=== PATIENT | female | born 1960 | race Caucasian/White ===

== ENCOUNTER 2022-02-06 13:08 | Outpatient (REF) | payer BC, SELFPAY ==
[2022-02-06 13:22] LABS: Appearance Urine Clear; Color Urine Yellow; Glucose Urine UA >=1000 mg/dL (Negative); Leukocyte Esterase Urine Moderate (2+) (Negative); Nitrite Urine Negative (Negative); PH 6.5 (5.0-9.0); UMIC TRIGGER UACC YES; Urine Blood Trace (Negative); Urine Ketones Negative (Negative); Urine Protein Negative (Neg-Trace)
[2022-02-06 15:29] LABS: Bacteria Urine 2+ (None Seen); Hyaline Casts Urine 0-2 /LPF (0-2); RBC Urine 0-2 /HPF (0-2); Squamous Epithelial Cell Urine 0-2 /HPF (0-2); UACC Culture Trigger YES; WBC Urine 21-50 /HPF (0-5)
== END 2022-02-06 13:09 | disposition home or self-care (01) ==
LOC: HO.LNP 13:08
PROVIDERS: Visit Provider Physician Assistant Medical
DX: R30.0 Dysuria (principal)
CPT/HCPCS: 81001; 87086; 87088; 87186

== ENCOUNTER 2022-03-11 08:57 | Outpatient (REF) | payer BC, SELFPAY ==
[2022-03-11 11:33] LABS: MANUAL DIFF FLAG NO
[2022-03-11 11:48] LABS: Basophils Percent Auto 0.6 % (0-2); Eosinophils Absolute Auto 0.2 X10*3/uL (0.0-0.4); Eosinophils Percent Auto 3.2 % (0-4); Hematocrit 40.1 % (37.0-47.0); Hemoglobin 12.9 g/dl (12.0-16.0); Imm Gran Abs Auto 0.02 X10*3/uL (0.00-0.03); Imm Gran Pct Auto 0.4 % (0.0-0.4); Lymphocytes Absolute Auto 1.6 X10*3/uL (1.2-4.9); Lymphocytes Percent Auto 30.2 % (20-40); Mean Corpuscular HGB Conc 32.2 g/dl (31.0-35.0); Mean Corpuscular Hemoglobin 29.3 pg (27.0-33.0); Mean Corpuscular Volume 90.9 fL (80.0-98.0); Mean Platelet Volume 10.2 fL (9.4-12.3); Monocytes Absolute Auto 0.6 X10*3/uL (0.1-1.2); Monocytes Percent Auto 11.4 % (2-11); Neutrophils Absolute Auto 2.9 x10*3/uL (2.0-8.3); Neutrophils Percent Auto 54.2 % (45-73); Platelet Count 335 X10*3/uL (160-400); Red Blood Count 4.41 X10*6/uL (4.20-5.50); Red Cell Distribution Width 12.9 % (11.0-16.0); White Blood Count 5.4 X10*3/uL (4.8-10.8)
[2022-03-11 12:14] LABS: Alanine Aminotransferase 15 U/L (0-31); Albumin Level 4.5 g/dL (3.5-5.0); Alkaline Phosphatase 91 U/L (39-117); Anion Gap 17 (12-20); Aspartate Amino Transferase 10 U/L (5-31); Bilirubin Total 0.3 mg/dL (0.0-1.0); Blood Urea Nitrogen 12 mg/dL (9-16); Calcium 9.4 mg/dL (8.4-10.2); Carbon Dioxide 26 mmol/L (22-29); Chloride 103 mmol/L (96-108); Cholesterol 243 mg/dL; Estimated Glomerular Filt Rate > 60; Glucose Fasting 203 mg/dL (60-99); HDL Cholesterol 81 mg/dL; LDL Cholesterol Calculated 137 mg/dl; Potassium 4.2 mmol/L (3.3-5.1); Sodium 142 mmol/L (135-145); Total Protein 7.2 g/dL (6.5-8.0); Triglycerides 127 mg/dL
[2022-03-11 12:20] LABS: Vitamin D 25-OH Total 29.1 ng/mL (>30)
[2022-03-11 13:19] LABS: Appearance Urine Turbid; Color Urine Yellow; Glucose Urine UA 500 mg/dL (Negative); Leukocyte Esterase Urine Trace (Negative); Nitrite Urine Negative (Negative); PH 5.5 (5.0-9.0); Specific Gravity - Urine 1.025 (1.005-1.025); UMIC TRIGGER UA YES; Urine Blood Trace (Negative); Urine Ketones Negative (Negative); Urine Protein Negative (Neg-Trace)
[2022-03-11 13:43] LABS: Bacteria Urine None Seen (None Seen); Calcium Oxalate Crystals Urine Present; Hyaline Casts Urine 0-2 /LPF (0-2); WBC Urine 0-5 /HPF (0-5)
== END 2022-03-11 08:58 | disposition home or self-care (01) ==
LOC: HO.HMGCLDS 08:57
PROVIDERS: PCP Internal Medicine; Visit Provider Internal Medicine
DX: Z00.00 Encounter for general adult medical examination without abnormal findings (principal)
CPT/HCPCS: 36415; 80053; 80061; 81001; 82306; 84443; 85025

== ENCOUNTER 2022-03-17 07:13 | Outpatient (REF) | payer BC, SELFPAY ==
[2022-03-17 11:46] LABS: Estimated Average Glucose 171 mg/dL; Hemoglobin A1c % 7.6 %
[2022-03-17 11:52] LABS: Glucose Fasting 185 mg/dL (60-99); Iron 109 mcg/dL (30-160); Percent Iron Saturation 30 % (15-50); Total Iron Binding Capacity 366 mcg/dL (228-428); Unsaturated Iron Binding 257 ug/dL
== END 2022-03-17 07:14 | disposition home or self-care (01) ==
LOC: HO.HMGCLDS 07:13
PROVIDERS: PCP Internal Medicine; Visit Provider Internal Medicine
DX: Z00.00 Encounter for general adult medical examination without abnormal findings (principal); R73.9 Hyperglycemia, unspecified
CPT/HCPCS: 36415; 82947; 83036; 83540

== ENCOUNTER → 2022-03-31 12:56 | Outpatient (BNVA) | payer BC, SELFPAY | PROVIDERS: PCP Internal Medicine; Visit Provider Dietitian, Registered | DX: E11.9 Type 2 diabetes mellitus without complications (principal) | CPT/HCPCS: 97802 ==

== ENCOUNTER 2022-07-16 06:50 | Outpatient (REF) | payer BC, SELFPAY ==
[2022-07-16 11:51] LABS: Estimated Average Glucose 157 mg/dL; Hemoglobin A1c % 7.1 %
[2022-07-16 12:01] LABS: Alanine Aminotransferase 12 U/L (0-31); Albumin Level 4.4 g/dL (3.5-5.0); Alkaline Phosphatase 74 U/L (39-117); Anion Gap 12 (12-20); Aspartate Amino Transferase 12 U/L (5-31); Bilirubin Total 0.6 mg/dL (0.0-1.0); Blood Urea Nitrogen 16 mg/dL (9-16); Calcium 9.5 mg/dL (8.4-10.2); Carbon Dioxide 29 mmol/L (22-29); Chloride 106 mmol/L (96-108); Cholesterol 212 mg/dL; Estimated Glomerular Filt Rate > 60; Glucose Fasting 138 mg/dL (60-99); HDL Cholesterol 64 mg/dL; LDL Cholesterol Calculated 131 mg/dl; Sodium 143 mmol/L (135-145); Total Protein 6.7 g/dL (6.5-8.0); Triglycerides 85 mg/dL
[2022-07-16 12:20] LABS: Creatinine Urine 127.11 mg/dL; Microalbum/Creatinine Ratio Ur 14.1 ug/mg cr
== END 2022-07-16 06:51 | disposition home or self-care (01) ==
LOC: HO.HMGCLDS 06:50
PROVIDERS: PCP Internal Medicine; Visit Provider Internal Medicine
DX: E11.9 Type 2 diabetes mellitus without complications (principal)
CPT/HCPCS: 36415; 80053; 80061; 82043; 83036

== ENCOUNTER 2022-11-30 07:01 | Outpatient (REF) | payer BC, SELFPAY ==
[2022-11-30 11:40] LABS: Estimated Average Glucose 134 mg/dL; Hemoglobin A1c % 6.3 %
[2022-11-30 11:54] LABS: Alanine Aminotransferase 20 U/L (0-31); Albumin Level 4.3 g/dL (3.5-5.0); Alkaline Phosphatase 69 U/L (39-117); Anion Gap 14 (12-20); Aspartate Amino Transferase 16 U/L (5-31); Bilirubin Total 0.5 mg/dL (0.0-1.0); Blood Urea Nitrogen 13 mg/dL (9-16); Calcium 10.1 mg/dL (8.4-10.2); Carbon Dioxide 26 mmol/L (22-29); Chloride 105 mmol/L (96-108); Cholesterol 227 mg/dL; Estimated Glomerular Filt Rate > 60; Glucose Fasting 154 mg/dL (60-99); HDL Cholesterol 80 mg/dL; LDL Cholesterol Calculated 128 mg/dl; Sodium 141 mmol/L (135-145); Total Protein 6.8 g/dL (6.5-8.0); Triglycerides 96 mg/dL
== END 2022-11-30 07:02 | disposition home or self-care (01) ==
LOC: HO.HMGCLDS 07:01
PROVIDERS: PCP Internal Medicine; Visit Provider Internal Medicine
DX: E11.9 Type 2 diabetes mellitus without complications (principal)
CPT/HCPCS: 36415; 80053; 80061; 83036

== ENCOUNTER 2022-12-10 08:39 | Outpatient (AMB) | payer BC, SELFPAY ==
[2022-12-10 08:40] VITALS: BP 118/62; PULSE 81; O2SAT 100; BMI 20.4
--- NOTE | 2022-12-10 08:40 | MHC.PC.OV ---
Vital Signs 12/10/22 08:40 Height 5 ft 9 in Weight 138 lb BMI 20.4 BP 118/62 Blood Pressure Location Lt brachial Position Sitting Pulse 81 Pulse Source Pulse Oximeter Pulse Oximetry (%) 100 Oxygen Delivery Method Room Air Intake Visit Reasons: 3 Month follow up Intake Note: Pt is here today for 3 months follow up visit. Allergies acetaminophen [From Percocet] Allergy (Mild, Verified 12/10/22 08:46) itchiness bupropion [From Wellbutrin] Allergy (Mild, Verified 12/10/22 08:46) HBP oxycodone [From Percocet] Allergy (Mild, Verified 12/10/22 08:46) itchiness Medication List - Last Reconciled 12/10/22 by Cristina Quintero MD berberine-herbal comb no.18 caps PO blood sugar diagnostic (FreeStyle Test strips) 1 QD FreeStyle Rickie 3 Sensor (blood-glucose sensor) As directed to monitor blood sugar 4 times per day NS FreeStyle Lite Meter (blood-glucose meter) As directed NS lancets (FreeStyle Lancets) 1 qd multivitamin 1 tab PO DAILY omega 2-ogm-gbk-fish oil 60-90-500 mg (Fish Oil) 1 cap PO DAILY turmeric mg PO Tobacco use date assessed: 12/10/22 Dental Screening Dental Screen Date: 12/10/22 Did you have a dental visit in the last 12 months?: Yes Did you have a dental problem in the last 6 months where you did not have access to dental care?: No Was dental information given to patient?: Patient has dentist HPI 3 Month follow up HPI Details Pt is for f/u diet controlled DM and hyperlipid. 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 Patient Tobacco Use Status: Former Tobacco user Quit Date: 42 years ago e-Cigarette/Vaping Use: Never Used Second Hand Smoke Exposure: No service: No Current occupational status: employed Current occupation: [employer] Current occupational exposures/hazards: No Cognitive needs: No Hearing needs: No Vision needs: No Questionnaire Thrive Questionnaire Date Thrive assessed: 07/21/22 I am a: Patient What is your living situation today?: I have a steady place to live Within the past 12 months, did the food you bought not last and you didn't have the money to get more?: Never true Within the past 12 months, did you worry whether your food would run out before you got money to buy more?: Never true AUDIT C Alcohol Use Questionnaire (AUDIT-C) 1. How often do you have a drink containing alcohol?: 2-4 times a month 2. How many drinks containing alcohol do you have on a typical day when you are drinking?: 1 or 2 3. How often do you have six or more drinks on one occasion?: Never Total Score: 2 DOREEN-7 AMB Questionnaire DOREEN-7 Date DOREEN - 7 assessed: 07/21/22 Feeling nervous, anxious, or on edge: 1 = Several days Not being able to stop or control worryin = Several days Worrying too much about different things: 1 = Several days Trouble relaxin = Several days Being so restless that it is hard to sit still: 1 = Several days Becoming easily annoyed or irritable: 1 = Several days Feeling afraid as if something awful might happen: 0 = Not at all Total DOREEN-7 score (0-4 normal; 5-9 mild; 10-14 moderate; 15-21 severe): 6 Source: Developed by Drs. Asim Sharma, Roselyn Vance, Richard Pace and colleagues, with an educational casa from [employer]. Review of Systems Const All systems reviewed & are unremarkable except as noted in HPI and below Reports no additional complaints Eyes Reports no additional complaints ENT Reports no additional complaints Card Reports no additional complaints Resp Reports no additional complaints GI Reports no additional complaints Physical exam (Primary Care) Vital Signs: Last Vital Signs Pulse 81 12/10/22 08:40 BP 118/62 12/10/22 08:40 Pulse Ox 100 12/10/22 08:40 Oxygen Delivery Method Room Air 12/10/22 08:40 BMI result Body Mass Index 20.4 Tobacco/Smoking Status: Tobacco use Status Tobacco use date assessed 12/10/22 12/10/22 08:48 Patient Tobacco Use Status Former Tobacco user 12/10/22 08:41 e-Cigarette/Vaping Use Never Used 12/10/22 08:41 Thrive Assessment: Date of Thrive Assessment Date Thrive assessed 07/21/22 12/10/22 08:41 Const General: no acute distress HENMT Head: Yes normal to inspection General nose exam: Normal external nose present Mouth: Normal oral and palatal mucosa present Throat: Yes posterior oropharynx normal Eyes General: appearance normal, both eyes and all related structures Neck Neck: Yes supple Resp Effort & Inspection: normal respiratory effort Auscultation: clear to auscultation bilaterally Cardio Rhythm: regular rhythm Heart sounds: S1 normal heart sound present and S2 normal heart sound present GI Inspection: Yes normal to inspection Palpation (GI): Soft to palpation Auscultation: normal bowel sounds Extrem General: Yes no clubbing, cyanosis or edema Assessment and Plan Assessment & Plan (1) DM2 (diabetes mellitus, type 2): Comment: A1c 7.6 03/13, patient declined medications A1C 6.3, 12/12 Code(s): E11.9 - Type 2 diabetes mellitus without complications Plan: A1C is down to 6.3, cont ADA diet, exercise, f/u 6 mths for PE (2) Postmenopausal: Code(s): Z78.0 - Asymptomatic menopausal state Plan: check DEXA and cont vit D 3 (3) FHx: coronary artery disease: Comment: mother [place] in 60, father CAD, s/p AVR Code(s): Z82.49 - Family history of ischemic heart disease and other diseases of the circulatory system Plan: check apolipoprotein B and lipid profile Orders: Orders Apolipoprotein B 6 Months E11.9 - Type 2 diabetes mellitus without complications, E78.5 - Hyperlipidemia, unspecified, Z78.0 - Asymptomatic menopausal state, Z82.49 - Family history of ischemic heart disease and other diseases of the circulatory system Comprehensive [place]. Panel Fast 6 Months E11.9 - Type 2 diabetes mellitus without complications, E78.5 - Hyperlipidemia, unspecified, Z78.0 - Asymptomatic menopausal state, Z82.49 - Family history of ischemic heart disease and other diseases of the circulatory system Hemoglobin A1c 6 Months E11.9 - Type 2 diabetes mellitus without complications, E78.5 - Hyperlipidemia, unspecified, Z78.0 - Asymptomatic menopausal state, Z82.49 - Family history of ischemic heart disease and other diseases of the circulatory system Lipid Panel 6 Months E11.9 - Type 2 diabetes mellitus without complications, E78.5 - Hyperlipidemia, unspecified, Z78.0 - Asymptomatic menopausal state, Z82.49 - Family history of ischemic heart disease and other diseases of the circulatory system Microalbumin, Random (w Creat) 6 Months E11.9 - Type 2 diabetes mellitus without complications, E78.5 - Hyperlipidemia, unspecified, Z78.0 - Asymptomatic menopausal state, Z82.49 - Family history of ischemic heart disease and other diseases of the circulatory system Complete Blood Count Auto Diff 6 Months E11.9 - Type 2 diabetes mellitus without complications, E78.5 - Hyperlipidemia, unspecified, Z78.0 - Asymptomatic menopausal state, Z82.49 - Family history of ischemic heart disease and other diseases of the circulatory system XR DEXA axial skeleton 6 Months E11.9 - Type 2 diabetes mellitus without complications, E78.5 - Hyperlipidemia, unspecified, Z78.0 - Asymptomatic menopausal state, Z82.49 - Family history of ischemic heart disease and other diseases of the circulatory system Coding Level of Care Code Est Pt Level 4 (19896) Diagnoses DM2 (diabetes mellitus, type 2) E11.9 Postmenopausal Z78.0 FHx: coronary artery disease Z82.49
== END 2022-12-10 09:36 | disposition home or self-care (01) ==
PROVIDERS: Visit Provider Internal Medicine
DX: E11.9 Type 2 diabetes mellitus without complications (principal); Z78.0 Asymptomatic menopausal state; Z82.49 Family history of ischemic heart disease and other diseases of the circulatory system
CPT/HCPCS: 99214

== ENCOUNTER 2023-02-01 08:03 | Outpatient (REF) | payer BC, SELFPAY ==
--- NOTE | ~2023-02-01 | MM_ITS ---
EXAMINATION: BONE DENSITOMETRY CLINICAL INDICATION: Menopausal. COMPARISON: This is the patient's baseline examination. TECHNIQUE: Using a [employer] DXA System (software version: 13.1) manufactured by [employer], dual-energy x-ray absorptiometry was performed of the lumbar spine and left hip. The images are of good technical quality. Summary results are attached. FINDINGS: LEFT FEMUR, NECK: BMD 0.831 g/cm2, Z-score -0.1, T-score -1.5, osteopenia. LEFT FEMUR, TOTAL: BMD 0.776 g/cm2, Z-score -0.7, T-score -1.8, osteopenia. AP SPINE L1-L4: BMD 1.150 g/cm2, Z-score 1.2, T-score -0.3, normal. IDENTIFIED RISK FACTORS: Early menopause, secondary osteoporosis, hysterectomy, bilateral oophorectomy. HISTORY OF FRACTURE: None listed. MEDICATIONS: Multivitamin. MM/XR DEXA axial skeleton IMPRESSION: 1. DIAGNOSIS: Osteopenia based on the lowest T-score value of -1.8 in the total femur applying World Health Organization criteria. 2. 10-YEAR FRACTURE RISK PREDICTION, FRAX: Major osteoporotic fracture (clinical spine, forearm, hip or shoulder) 7.5%. Hip fracture 0.8%. 3. Treatment Recommendations: NOF guidelines recommend consideration for treatment in postmenopausal women and men age 50 and older presenting with the following: -A hip or vertebral (clinical or morphometric) fracture. -T-score less than or equal to -2.5 at the femoral neck or spine after appropriate evaluation to exclude secondary causes. -Low bone mass at the hip or spine and a 10-year fracture probability by FRAX of greater than or equal to 3% for hip fracture or greater than or equal to 20% for major osteoporotic fracture based on the [place] adapted WHO algorithm. 4. Other Recommendations: All treatment decisions require clinical judgment and consideration of individual patient factors, including patient preferences, comorbidities, previous drug use, risk factors not captured in the FRAX model (e.g. frailty, falls, vitamin D deficiency, increased bone turnover, interval significant decline in bone density) and possible under or overestimation of fracture risk by FRAX. Additional medical evaluation for secondary cause of low bone mineral density may be appropriate. FUTURE SCAN RECOMMENDATION: People with diagnosed cases of osteoporosis or at high risk for fracture should have regular bone mineral density tests. For patients eligible for Medicare, routine testing is allowed once every 2 years. The testing frequency can be increased to one year for patients who have rapidly progressing disease, those who are receiving or discontinuing medical therapy to restore bone mass, or have additional risk factors.
== END 2023-02-01 08:04 | disposition home or self-care (01) ==
LOC: HO.MAMMO 08:03
PROVIDERS: PCP Internal Medicine; Visit Provider Internal Medicine
DX: Z13.820 Encounter for screening for osteoporosis (principal); Z78.0 Asymptomatic menopausal state
CPT/HCPCS: 77080

== ENCOUNTER → 2023-02-01 08:15 | Outpatient (BNV) | payer BC, SELFPAY | PROVIDERS: PCP Internal Medicine; Visit Provider Radiology Diagnostic Radiology | DX: M85.89 Other specified disorders of bone density and structure, multiple sites (principal) | CPT/HCPCS: 77080 ==

== ENCOUNTER 2023-06-09 06:28 | Outpatient (REF) | payer BC, SELFPAY ==
[2023-06-09 12:03] LABS: MANUAL DIFF FLAG NO
[2023-06-09 12:12] LABS: Basophils Percent Auto 0.7 % (0-2); Eosinophils Absolute Auto 0.2 X10*3/uL (0.0-0.4); Eosinophils Percent Auto 3.2 % (0-4); Hematocrit 39.9 % (37.0-47.0); Hemoglobin 12.8 g/dl (12.0-16.0); Imm Gran Abs Auto 0.02 X10*3/uL (0.00-0.03); Imm Gran Pct Auto 0.4 % (0.0-0.4); Lymphocytes Absolute Auto 1.7 X10*3/uL (1.2-4.9); Lymphocytes Percent Auto 31.9 % (20-40); Mean Corpuscular HGB Conc 32.1 g/dl (31.0-35.0); Mean Corpuscular Hemoglobin 29.6 pg (27.0-33.0); Mean Corpuscular Volume 92.1 fL (80.0-98.0); Mean Platelet Volume 10.3 fL (9.4-12.3); Monocytes Absolute Auto 0.6 X10*3/uL (0.1-1.2); Monocytes Percent Auto 11.2 % (2-11); Neutrophils Absolute Auto 2.8 x10*3/uL (2.0-8.3); Neutrophils Percent Auto 52.6 % (45-73); Platelet Count 378 X10*3/uL (160-400); Red Blood Count 4.33 X10*6/uL (4.20-5.50); Red Cell Distribution Width 13.2 % (11.0-16.0); White Blood Count 5.4 X10*3/uL (4.8-10.8)
[2023-06-09 12:18] LABS: Estimated Average Glucose 134 mg/dL; Hemoglobin A1c % 6.3 % (<6.0)
[2023-06-09 12:58] LABS: Alanine Aminotransferase 13 U/L (0-31); Albumin Level 4.2 g/dL (3.5-5.0); Alkaline Phosphatase 65 U/L (39-117); Anion Gap 12 (12-20); Aspartate Amino Transferase 12 U/L (5-31); Bilirubin Total 0.4 mg/dL (0.0-1.0); Blood Urea Nitrogen 16 mg/dL (9-16); Calcium 9.5 mg/dL (8.4-10.2); Carbon Dioxide 27 mmol/L (22-29); Chloride 109 mmol/L (96-108); Cholesterol 211 mg/dL (<200); Estimated Glomerular Filt Rate > 60; Glucose Fasting 131 mg/dL (60-99); HDL Cholesterol 71 mg/dL (>40); LDL Cholesterol Calculated 123 mg/dL (<100); Sodium 144 mmol/L (135-145); Total Protein 6.8 g/dL (6.5-8.0); Triglycerides 87 mg/dL (<150)
[2023-06-09 13:00] LABS: Microalbum/Creatinine Ratio Ur 25.8 ug/mg cr (<30)
[2023-06-14 00:14] LABS: Apolipoprotein B 94 mg/dL (<90)
== END 2023-06-09 06:29 | disposition home or self-care (01) ==
LOC: HO.HMGCLDS 06:28
PROVIDERS: PCP Internal Medicine; Visit Provider Internal Medicine
DX: E78.5 Hyperlipidemia, unspecified (principal); E11.9 Type 2 diabetes mellitus without complications; Z78.0 Asymptomatic menopausal state; Z82.49 Family history of ischemic heart disease and other diseases of the circulatory system
CPT/HCPCS: 36415; 80053; 80061; 82043; 82172; 82570; 83036; 85025

== ENCOUNTER 2023-06-14 07:29 | Outpatient (AMB) | payer BC, SELFPAY ==
[2023-06-14 07:31] VITALS: BP 110/62; PULSE 82; O2SAT 98; BMI 20.5
--- NOTE | 2023-06-14 07:31 | MHC.PC.OV ---
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: No Accompanied by: Self / Same As Patient Allergies acetaminophen [From Percocet] Allergy (Mild, Verified 06/14/23 07:32) itchiness bupropion [From Wellbutrin] Allergy (Mild, Verified 06/14/23 07:32) HBP oxycodone [From Percocet] Allergy (Mild, Verified 06/14/23 07:32) itchiness Medication List - Last Reconciled 06/14/23 by Cristina Quintero MD berberine-herbal comb no.18 caps PO blood sugar diagnostic (FreeStyle Test strips) 1 QD FreeStyle Rickie 3 Sensor (blood-glucose sensor) As directed to monitor blood sugar 4 times per day NS FreeStyle Lite Meter (blood-glucose meter) As directed NS lancets (FreeStyle Lancets) 1 qd multivitamin 1 tab PO DAILY turmeric mg PO Tobacco use date assessed: 06/14/23 Dental Screening Dental Screen Date: 06/14/23 Did you have a dental visit in the last 12 months?: Yes Did you have a dental problem in the last 6 months where you did not have access to dental care?: No Was dental information given to patient?: Patient has dentist HPI PE HPI Details Pt presents for PE. Patient has been under lot of stress related to work and is planning to semi retired in the spring. 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 1. Little interest or pleasure in doing things: not at all 2. Feeling down, depressed, or hopeless: several days 3. Trouble falling or staying asleep, or sleeping too much: more than half the days 4. Feeling tired or having little energy: more than half the days 5. Poor appetite or overeating: not at all 6. Feeling bad about yourself - or that you are a failure or have let yourself or your family down: not at all 7. Trouble concentrating on things, such as reading the newspaper or watching television: more than half the days 8. Moving or speaking so slowly that other people could have noticed. Or the opposite - being so fidgety or restless that you have been moving around a lot more than usual: not at all 9. Thoughts that you would be better off or of hurting yourself in some way: not at all Total score: 7 Depression Screening Interpretation: Negative Depression Screening Done: Yes 13637 - PHQ-9 Billing: Yes Source: Developed by Drs. Asim Sharma, Roselyn Vance, Richard Pace and colleagues, with an educational casa from [employer]. Thrive Questionnaire Date Thrive assessed: 06/14/23 I am a: Patient What is your living situation today?: I have a steady place to live Within the past 12 months, did the food you bought not last and you didn't have the money to get more?: Never true Within the past 12 months, did you worry whether your food would run out before you got money to buy more?: Never true Do you have trouble paying for medicines?: No Do you have trouble getting transportation to medical appointments?: No Do you have trouble paying your heating and electricity bill?: No Do you have trouble taking care of your child, family member or friend?: No Do you have trouble with day-to-day activities such as bathing, preparing meals, shopping, managing finances, etc.?: No Are you currently unemployed and looking for a job?: No Are you interested in more education?: No Please select the resources that you would like help with: None Currently or been in a relationship where the following occur: no concerns reported THRIVE Score: 0 AUDIT C Alcohol Use Questionnaire (AUDIT-C) 1. How often do you have a drink containing alcohol?: 2-4 times a month 2. How many drinks containing alcohol do you have on a typical day when you are drinking?: 1 or 2 3. How often do you have six or more drinks on one occasion?: Never Total Score: 2 Score Reviewed/Action Taken: Yes DOREEN-7 AMB Questionnaire ODREEN-7 Date DOREEN - 7 assessed: 06/14/23 Feeling nervous, anxious, or on edge: 2 = More than half the days Not being able to stop or control worryin = More than half the days Worrying too much about different things: 2 = More than half the days Trouble relaxin = More than half the days Being so restless that it is hard to sit still: 1 = Several days Becoming easily annoyed or irritable: 2 = More than half the days Feeling afraid as if something awful might happen: 1 = Several days Total DOREEN-7 score (0-4 normal; 5-9 mild; 10-14 moderate; 15-21 severe): 12 Source: Developed by Drs. Asim Sharma, Roselyn Vance, Richard Pace and colleagues, with an educational casa from [employer]. DOREEN-7 Assessment Billing DOREEN-7 Assessment Tool: DOREEN-7 Assessment 58001 Review of Systems Const All systems reviewed & are unremarkable except as noted in HPI and below Reports no additional complaints Eyes Reports no additional complaints ENT Reports no additional complaints Card Reports no additional complaints Resp Reports no additional complaints GI Reports no additional complaints Reports no additional complaints Physical exam (Primary Care) Vital Signs: Last Vital Signs Pulse 82 06/14/23 07:31 BP 110/62 06/14/23 07:31 Pulse Ox 98 06/14/23 07:31 Oxygen Delivery Method Room Air 06/14/23 07:31 BMI result Body Mass Index 20.5 Tobacco/Smoking Status: Tobacco use Status Tobacco use date assessed 06/14/23 06/14/23 07:38 Patient Tobacco Use Status Former Tobacco user 06/14/23 07:38 e-Cigarette/Vaping Use Never Used 06/14/23 07:38 PHQ-9: PHQ-9 Score PHQ-9: Total score 7 06/14/23 07:45 Depression Screening Interpretation: Negative Thrive Assessment: Date of Thrive Assessment Date Thrive assessed 06/14/23 06/14/23 07:38 Currently or been in a relationship where the following occur: no concerns reported Const General: no acute distress HENMT Head: Yes normal to inspection Ears: hearing grossly normal bilaterally General nose exam: Normal external nose present Face and sinus: Yes normal facial exam Mouth: Normal oral and palatal mucosa present Throat: Yes posterior oropharynx normal Eyes General: appearance normal, both eyes and all related structures Neck Neck: Yes no lymphadenopathy and Yes supple Resp Effort & Inspection: normal respiratory effort Auscultation: clear to auscultation bilaterally Cardio Rhythm: regular rhythm Heart sounds: S1 normal heart sound present and S2 normal heart sound present GI Inspection: Yes normal to inspection Palpation (GI): Soft to palpation Percussion: Yes normal to percussion Auscultation: normal bowel sounds Assessment and Plan Assessment & Plan (1) Annual physical exam: Code(s): Z00.00 - Encounter for general adult medical examination without abnormal findings Plan: Well-balanced diet regular exercise stress management discussed with the patient. She is up-to-date with mammogram colonoscopy patient will return in 6 months with a fasting labs. (2) DM2 (diabetes mellitus, type 2): Comment: A1c 7.6 03/13, patient declined medications A1C 6.3, 12/12, 6.3 06/15 Code(s): E11.9 - Type 2 diabetes mellitus without complications Plan: Continue ADA diet regular exercise and stress management follow-up in 6 months with a fasting labs before (3) Hyperlipidemia: Code(s): E78.5 - Hyperlipidemia, unspecified Plan: Low-cholesterol diet increase physical activity discussed with the patient. Patient declined taking statin Orders: Orders Hemoglobin A1c 6 Months E11.9 - Type 2 diabetes mellitus without complications, E78.5 - Hyperlipidemia, unspecified, Z00.00 - Encounter for general adult medical examination without abnormal findings Lipid Panel 6 Months E11.9 - Type 2 diabetes mellitus without complications, E78.5 - Hyperlipidemia, unspecified, Z00.00 - Encounter for general adult medical examination without abnormal findings Microsatellite Instability 6 Months E11.9 - Type 2 diabetes mellitus without complications, E78.5 - Hyperlipidemia, unspecified, Z00.00 - Encounter for general adult medical examination without abnormal findings Comprehensive [place]. Panel Fast 6 Months E11.9 - Type 2 diabetes mellitus without complications, E78.5 - Hyperlipidemia, unspecified, Z00.00 - Encounter for general adult medical examination without abnormal findings Complete Blood Count Auto Diff 6 Months E11.9 - Type 2 diabetes mellitus without complications, E78.5 - Hyperlipidemia, unspecified, Z00.00 - Encounter for general adult medical examination without abnormal findings Vitamin D 25-OH Total 6 Months E11.9 - Type 2 diabetes mellitus without complications, E78.5 - Hyperlipidemia, unspecified, Z00.00 - Encounter for general adult medical examination without abnormal findings Referrals Speech and Hearing Referral Z00.00 - Encounter for general adult medical examination without abnormal findings Coding Level of Care Code Est Pt Prev Care 40-64y([id number]) Diagnoses Annual physical exam Z00.00 DM2 (diabetes mellitus, type 2) E11.9 Hyperlipidemia E78.5 Additional Codes DOREEN-7 Assessment Billing - DOREEN-7 Assessment Tool: DOREEN-7 Assessment [id number] ([id number])
== END 2023-06-14 08:21 | disposition home or self-care (01) ==
PROVIDERS: PCP Internal Medicine; Visit Provider Internal Medicine
DX: Z00.00 Encounter for general adult medical examination without abnormal findings (principal); E11.9 Type 2 diabetes mellitus without complications; E78.5 Hyperlipidemia, unspecified
CPT/HCPCS: 99396

== ENCOUNTER 2023-10-06 12:23 | Outpatient (REF) | payer BC, SELFPAY | END 2023-10-06 12:24 | disposition home or self-care (01) | LOC: HO.SH 12:23 | PROVIDERS: Visit Provider Internal Medicine | DX: Z01.118 Encounter for examination of ears and hearing with other abnormal findings (principal); H90.3 Sensorineural hearing loss, bilateral | CPT/HCPCS: 92557; 92567 ==